=== PATIENT | male | born 1960 | race Caucasian/White ===

== ENCOUNTER 2017-02-10 10:52 | Inpatient (IN) | payer OTHER ==
[~2017-02-10] VITALS: Ht 162.5 cm; Wt 61.9 kg
[~2017-02-10 10:52] MED LIST changes: -'XANAX1 MG PO; -B121000 MCG/1 IM; -NEURONTIN300 MG PO; -PAROXETINE HCL40 MG PO; -QUETIAPINE FUM100 M3 PO; -TRAZADONE HYDR100 MG PO
[2017-02-10 11:04] VITALS: BP 133/86
[2017-02-10] MEDS ORDERED: 'XANAX1 MG PO (11:04)
[2017-02-10] MEDS ORDERED: TRAZADONE HYDR100 MG PO (11:05)
[2017-02-10] MEDS ORDERED: PAROXETINE HCL40 MG PO (11:05)
[2017-02-10] MEDS ORDERED: QUETIAPINE FUM100 M3 PO (11:05)
[2017-02-10 12:01] LABS: TROPONIN I < 0.015 ng/ml (<0.045)
[2017-02-10 13:00] VITALS: BP 148/70
[2017-02-10 14:00] VITALS: BP 150/88
[2017-02-10 14:40] VITALS: BP 138/70
[2017-02-10 15:45] VITALS: BP 123/80
[2017-02-10] MEDS ORDERED: NEURONTIN300 MG PO (16:16)
[2017-02-10 20:00] VITALS: BP 131/90
[2017-02-11] VITALS: BP 94/53
[2017-02-11 06:24] LABS: BASO # 0.1 10*3/uL (0.0-0.1); BASO % 1.8 % (0.0-1.0); EOS # 0.2 10*3/uL (0.0-0.4); EOS % 4.1 % (1.0-4.0); HEMATOCRIT 41.6 % (42.0-52.0); HEMOGLOBIN 14.5 g/dl (14.0-18.0); LYMPH # 1.9 10*3/uL (1.3-4.4); LYMPH % 42.7 % (27.0-41.0); MEAN CELL VOLUME 97.7 fl (80.0-94.0); MEAN CORPUSCULAR HGB CONC 34.9 g/dl (33.0-37.0); MONO # 0.5 10*3/uL (0.1-1.0); MONO % 11.8 % (3.0-9.0); NEUT # 1.7 10*3/uL (2.3-7.9); NEUT % 39.6 % (47.0-73.0); PLATELET COUNT AUTOMATED 187 10*3/uL (130-400); RED BLOOD COUNT 4.26 10*6/uL (4.50-5.90); RED CELL DISTRI WIDTH 13.3 % (0-14.5); WHITE BLOOD COUNT 4.4 10*3/uL (4.8-10.8)
[2017-02-11 06:34] LABS: PROTHROMBIN TIME 10.3 SECONDS (9.0-12.4)
[2017-02-11 06:37] LABS: BUN 11 mg/dl (7-24); CARBON DIOXIDE 27 mmol/L (21-32); CHLORIDE 106 mmol/L (98-107); CHOLESTEROL 158 mg/dL (<200); EST GLOM FILT AFRICAN AMERICAN > 60 ml/min; FREE T4 0.73 ng/dl (0.76-1.46); GLUCOSE 88 mg/dL (65-99); HDL CHOLESTEROL 34 mg/dl (40-60); LDL CHOLESTEROL 83 mg/dL (9-159); MAGNESIUM 2.2 mg/dL (1.5-2.1); PHOSPHOROUS 4.5 mg/dL (2.5-4.9); SODIUM 143 mmol/L (136-145); TRIGLYCERIDES 206 mg/dl (<150); VLDL CHOLESTEROL 41 mg/dL (6-40)
[2017-02-11 07:12] LABS: HEMOGLOBIN A1c 5.6 % (4.8-5.6)
[2017-02-11 07:25] LABS: FOLIC ACID 7.06 ng/mL (>5.38)
[2017-02-11 08:00] VITALS: BP 111/71
[2017-02-11 16:00] VITALS: BP 140/85
[2017-02-11] MEDS ORDERED: B121000 MCG/1 IM (18:10)
[2017-02-11 20:00] VITALS: BP 151/92
[2017-02-12] VITALS: BP 152/90
[2017-02-12 07:07] LABS: BASO # 0.1 10*3/uL (0.0-0.1); BASO % 1.7 % (0.0-1.0); EOS # 0.2 10*3/uL (0.0-0.4); EOS % 5.4 % (1.0-4.0); HEMATOCRIT 42.5 % (42.0-52.0); HEMOGLOBIN 14.5 g/dl (14.0-18.0); LYMPH # 1.9 10*3/uL (1.3-4.4); LYMPH % 46.8 % (27.0-41.0); MEAN CELL VOLUME 98.4 fl (80.0-94.0); MEAN CORPUSCULAR HGB 33.6 pg (27.0-31.0); MEAN CORPUSCULAR HGB CONC 34.1 g/dl (33.0-37.0); MEAN PLATELET VOLUME 10.1 fl (9.6-12.3); MONO # 0.4 10*3/uL (0.1-1.0); MONO % 10.6 % (3.0-9.0); NEUT # 1.4 10*3/uL (2.3-7.9); NEUT % 35.5 % (47.0-73.0); PLATELET COUNT AUTOMATED 165 10*3/uL (130-400); RED BLOOD COUNT 4.32 10*6/uL (4.50-5.90); RED CELL DISTRI WIDTH 13.2 % (0-14.5)
[2017-02-12 08:00] VITALS: BP 118/88
[2017-02-12] MEDS ORDERED: PERCOCET 325 MG1 TA2 PO (11:52)
[2017-02-12] MEDS ORDERED: KROGER NIC21 MG/24 H T (12:10)
[2017-02-12] MEDS ORDERED: B12,B-12,B 12500 MC1 PO (12:10)
[2017-02-12] MEDS ORDERED: 'XANAX1 MG PO (12:44)
== END 2017-02-12 13:00 | disposition home or self-care (01) | DRG 914 ==
LOC: ED 10:52 → EDHOLD 13:57 → 5E 13:57
PROVIDERS: Emergency Medicine; Student in an Organized Health Care Education/Training Program
PROC: 4A02XM4 Measurement of Cardiac Total Activity, External Approach (ICD-10-PCS; principal; 2017-02-11)
PROC: 3E073KZ Introduction of Other Diagnostic Substance into Coronary Artery, Percutaneous Approach (ICD-10-PCS; 2017-02-11)
DX: S09.90XA Unspecified injury of head, initial encounter (principal); M48.02 Spinal stenosis, cervical region; I10 Essential (primary) hypertension; R07.89 Other chest pain; I45.10 Unspecified right bundle-branch block; M25.551 Pain in right hip; S16.1XXA Strain of muscle, fascia and tendon at neck level, initial encounter; E55.9 Vitamin D deficiency, unspecified; F17.210 Nicotine dependence, cigarettes, uncomplicated; Y92.238 Other place in hospital as the place of occurrence of the external cause; W10.8XXA Fall (on) (from) other stairs and steps, initial encounter; Y93.89 Activity, other specified; Y99.8 Other external cause status; Z90.49 Acquired absence of other specified parts of digestive tract; Z81.1 Family history of alcohol abuse and dependence; Z88.6 Allergy status to analgesic agent; Z79.899 Other long term (current) drug therapy; Z71.6 Tobacco abuse counseling; G43.909 Migraine, unspecified, not intractable, without status migrainosus; Z82.49 Family history of ischemic heart disease and other diseases of the circulatory system

== ENCOUNTER → 2017-02-10 | Outpatient (CLI) | payer OTHER ==
[~2017-02-10] MED LIST: 'PARAFON FORTE500 M1 PO; 'XANAX1 MG PO; B121000 MCG/1 IM; CYCLOBENZAPRINE5 M3 PO; NAPROSYN500 MG PO; NEURONTIN300 MG PO; PAROXETINE HCL40 MG PO; QUETIAPINE FUM100 M3 PO; TRAZADONE HYDR100 MG PO
[2017-02-10 10:53] LABS: HEMATOCRIT 45.1 % (42.0-52.0); HEMOGLOBIN 15.4 g/dl (14.0-18.0); MEAN CELL VOLUME 97.2 fl (80.0-94.0); MEAN CORPUSCULAR HGB 33.2 pg (27.0-31.0); MEAN CORPUSCULAR HGB CONC 34.1 g/dl (33.0-37.0); RED BLOOD COUNT 4.64 10*6/uL (4.50-5.90); RED CELL DISTRI WIDTH 13.2 % (0-14.5)
[2017-02-10 11:07] LABS: HEMOGLOBIN A1c 5.7 % (4.8-5.6)
[2017-02-10 11:28] LABS: ALBUMIN 3.7 gm/dl (3.1-4.5); ALKALINE PHOSPHATASE 89 U/L (45-117); BILIRUBIN, TOTAL 0.4 mg/dl (0.2-1.0); BUN 6 mg/dl (7-24); CARBON DIOXIDE 28 mmol/L (21-32); CHLORIDE 103 mmol/L (98-107); CHOLESTEROL 173 mg/dL (<200); CPK 94 U/L (39-308); EST GLOM FILT AFRICAN AMERICAN > 60 ml/min; GLUCOSE 70 mg/dL (65-99); HDL CHOLESTEROL 45 mg/dl (40-60); LDL CHOLESTEROL 105 mg/dL (9-159); POTASSIUM 4.5 mmol/L (3.5-5.1); SGOT/AST 30 IU/L (3-35); SGPT/ALT 32 U/L (12-78); SODIUM 138 mmol/L (136-145); TOTAL PROTEIN 8.8 gm/dL (6.4-8.2); TRIGLYCERIDES 116 mg/dl (<150); VLDL CHOLESTEROL 23 mg/dL (6-40)
== END | disposition home or self-care (01) ==
LOC: LAB 10:13
PROVIDERS: Family Medicine
DX: Z12.5 Encounter for screening for malignant neoplasm of prostate (principal); Z13.220 Encounter for screening for lipoid disorders; E55.9 Vitamin D deficiency, unspecified; J44.9 Chronic obstructive pulmonary disease, unspecified; M54.2 Cervicalgia; M54.5 Low back pain; R73.09 Other abnormal glucose; R07.89 Other chest pain; R05 Cough; R09.89 Other specified symptoms and signs involving the circulatory and respiratory systems; R06.02 Shortness of breath; F17.200 Nicotine dependence, unspecified, uncomplicated

== ENCOUNTER 2017-02-23 12:11 | Emergency (ER) | payer OTHER ==
[~2017-02-23] VITALS: Ht 162.5 cm; Wt 60.8 kg
[~2017-02-23 12:11] MED LIST changes: +'XANAX1 MG PO; +B12,B-12,B 12500 MC1 PO; +B121000 MCG/1 IM; +KROGER NIC21 MG/24 H T; +NEURONTIN300 MG PO; +PAROXETINE HCL40 MG PO; +PERCOCET 325 MG1 TA2 PO; +QUETIAPINE FUM100 M3 PO; +TRAZADONE HYDR100 MG PO
[2017-02-23] MEDS ORDERED: XANAX1 MG PO (12:17)
[2017-02-23 12:46] LABS: BASO % 0.5 % (0.0-1.0); EOS # 0.1 10*3/uL (0.0-0.4); EOS % 1.1 % (1.0-4.0); HEMOGLOBIN 15.3 g/dl (14.0-18.0); LYMPH # 2.7 10*3/uL (1.3-4.4); LYMPH % 33.3 % (27.0-41.0); MEAN CELL VOLUME 95.2 fl (80.0-94.0); MEAN CORPUSCULAR HGB 33.1 pg (27.0-31.0); MEAN CORPUSCULAR HGB CONC 34.8 g/dl (33.0-37.0); MEAN PLATELET VOLUME 10.2 fl (9.6-12.3); MONO # 0.9 10*3/uL (0.1-1.0); MONO % 11.3 % (3.0-9.0); NEUT # 4.3 10*3/uL (2.3-7.9); NEUT % 53.3 % (47.0-73.0); PLATELET COUNT AUTOMATED 186 10*3/uL (130-400); RED BLOOD COUNT 4.62 10*6/uL (4.50-5.90); RED CELL DISTRI WIDTH 13.4 % (0-14.5); WHITE BLOOD COUNT 8.1 10*3/uL (4.8-10.8)
[2017-02-23 12:56] LABS: PROTHROMBIN TIME 10.7 SECONDS (9.0-12.4)
[2017-02-23 13:02] LABS: ALBUMIN 3.5 gm/dl (3.1-4.5); ALKALINE PHOSPHATASE 84 U/L (45-117); BILIRUBIN, TOTAL 0.3 mg/dl (0.2-1.0); BUN 10 mg/dl (7-24); CARBON DIOXIDE 28 mmol/L (21-32); CHLORIDE 103 mmol/L (98-107); CPK 97 U/L (39-308); EST GLOM FILT AFRICAN AMERICAN > 60 ml/min; GLUCOSE 86 mg/dL (65-99); POTASSIUM 3.2 mmol/L (3.5-5.1); SGOT/AST 44 IU/L (3-35); SGPT/ALT 54 U/L (12-78); SODIUM 138 mmol/L (136-145); TOTAL PROTEIN 8.2 gm/dL (6.4-8.2)
[2017-02-23 13:07] LABS: CKMB < 0.5 ng/ml (0.5-3.6); TROPONIN I < 0.015 ng/ml (<0.045)
[2017-02-23] MEDS ORDERED: PRINIVIL5 M1 PO (14:50)
== END 2017-02-23 15:09 | disposition left against medical advice (07) ==
LOC: ED 12:11
PROVIDERS: Registered Nurse
DX: I10 Essential (primary) hypertension (principal); H53.8 Other visual disturbances; F17.210 Nicotine dependence, cigarettes, uncomplicated; Z88.6 Allergy status to analgesic agent; Z79.899 Other long term (current) drug therapy

== ENCOUNTER 2018-01-26 10:34 | Emergency (ER) | payer OTHER ==
[~2018-01-26] VITALS: Ht 162.5 cm; Wt 54.4 kg
[~2018-01-26 10:34] MED LIST changes: +PRINIVIL5 M1 PO; +XANAX1 MG PO
[2018-01-26 11:08] LABS: BASO # 0.1 10*3/uL (0.0-0.1); BASO % 1.4 % (0.0-1.0); EOS # 0.3 10*3/uL (0.0-0.4); EOS % 8.3 % (1.0-4.0); HEMOGLOBIN 13.9 g/dl (14.0-18.0); LYMPH # 1.2 10*3/uL (1.3-4.4); LYMPH % 34.5 % (27.0-41.0); MEAN CELL VOLUME 95.8 fl (80.0-94.0); MEAN CORPUSCULAR HGB 32.5 pg (27.0-31.0); MEAN CORPUSCULAR HGB CONC 33.9 g/dl (33.0-37.0); MEAN PLATELET VOLUME 10.5 fl (9.6-12.3); MONO # 0.5 10*3/uL (0.1-1.0); MONO % 13.8 % (3.0-9.0); NEUT # 1.5 10*3/uL (2.3-7.9); NEUT % 41.7 % (47.0-73.0); PLATELET COUNT AUTOMATED 183 10*3/uL (130-400); RED BLOOD COUNT 4.28 10*6/uL (4.50-5.90); RED CELL DISTRI WIDTH 13.7 % (0-14.5); WHITE BLOOD COUNT 3.5 10*3/uL (4.8-10.8)
[2018-01-26 11:19] LABS: ACT PARTIAL THROMBO TIME 27.7 SECONDS (20.8-31.5)
[2018-01-26 11:23] LABS: ALBUMIN 3.6 gm/dl (3.1-4.5); ALKALINE PHOSPHATASE 98 U/L (45-117); BUN 9 mg/dl (7-24); CHLORIDE 106 mmol/L (98-107); CREATININE 0.99 mg/dL (0.70-1.30); SGOT/AST 50 IU/L (3-35); SGPT/ALT 43 U/L (12-78); SODIUM 140 mmol/L (136-145); TOTAL PROTEIN 7.8 gm/dL (6.4-8.2)
[2018-01-26 11:25] LABS: TROPONIN I < 0.015 ng/ml (<0.045)
[2018-01-26] MEDS ORDERED: NAPROSYN500 MG PO (14:28)
[2018-01-26] MEDS ORDERED: CYCLOBENZAPRINE10 MG PO (14:28)
== END 2018-01-26 14:45 ==
LOC: ED 10:34
PROVIDERS: Nurse Practitioner Family
DX: M54.5 Low back pain (principal); G89.29 Other chronic pain; F17.200 Nicotine dependence, unspecified, uncomplicated; Z90.49 Acquired absence of other specified parts of digestive tract; Z79.899 Other long term (current) drug therapy; Z88.2 Allergy status to sulfonamides; Z88.6 Allergy status to analgesic agent; W19.XXXA Unspecified fall, initial encounter; Y93.89 Activity, other specified; Y92.89 Other specified places as the place of occurrence of the external cause; Y99.9 Unspecified external cause status

== ENCOUNTER 2018-11-09 08:47 | Emergency (ER) | payer OTHER ==
[~2018-11-09] VITALS: Ht 162.5 cm; Wt 63.5 kg
[~2018-11-09 08:47] MED LIST changes: +CYCLOBENZAPRINE10 MG PO
== END 2018-11-09 11:31 | disposition left against medical advice (07) ==
LOC: ED 08:47
DX: S22.42XA Multiple fractures of ribs, left side, initial encounter for closed fracture (principal); S16.1XXA Strain of muscle, fascia and tendon at neck level, initial encounter; S30.0XXA Contusion of lower back and pelvis, initial encounter; M25.551 Pain in right hip; F17.200 Nicotine dependence, unspecified, uncomplicated; Z88.6 Allergy status to analgesic agent; Z79.899 Other long term (current) drug therapy; W18.09XA Striking against other object with subsequent fall, initial encounter; Y93.01 Activity, walking, marching and hiking; Y92.098 Other place in other non-institutional residence as the place of occurrence of the external cause; Y99.8 Other external cause status